=== PATIENT | female | born 1975 | race Caucasian/White ===

== ENCOUNTER 2019-09-08 01:33 | Outpatient (CLI) | payer BC, SELFPAY ==
[2019-09-08 16:16] LABS: SARS-CoV-2 RNA PCR Negative
== END 2019-09-08 01:34 | disposition home or self-care (01) ==
LOC: ANHCOVIDDT 01:34
PROVIDERS: PCP Family Medicine; Visit Provider Internal Medicine Gastroenterology
DX: Z01.82 Encounter for allergy testing (principal); Z11.59 Encounter for screening for other viral diseases
CPT/HCPCS: 87635; C9803; U0003

== ENCOUNTER 2019-09-10 00:58 | Day surgery (SDC) | payer BC, SELFPAY ==
[2019-09-04 10:03] VITALS: BMI 30.5
[2019-09-10 08:12] VITALS: BP 150/90; PULSE 70; RESP 18; TEMP 36.3; O2SAT 100
[2019-09-10] MEDS: LACTATED RINGERS 1,000 ML 150 ML IV CONT (08:25)
--- NOTE | 2019-09-10 08:53 | PM.HPGS ---
History of Present Illness History of Present Illness Consent: Risks, benefits, and alternatives have been discussed and questions answered. Patient agrees to proceed with procedure. Chief complaint: N & V/ Reflux Narrative: Ernestine Sotelo is a 44 year old female Who has been suffering from nausea and vomiting. This began about 3 or 4 years ago. She has also had epigastric burning pain for most of that time. vomiting will occur randomly, usually preceded by nausea. She has had no weight loss. She discontinued all rind-snn-senboti anti-inflammatories. She will often have a cocktail late in evening. Since beginning Nexium 40 mg per day 8 weeks ago her symptoms have improved, but not entirely subsided PMF Family History Family History Father Family history of diabetes mellitus in first degree relative Other Diabetes mellitus Family history of malignant neoplasm of male breast Social History Social History Alcohol intake: current Meds Home Medications and Allergies Home Medications Medication Instructions Recorded Confirmed Type esomeprazole magnesium 40 mg 40 mg PO DAILY #30 cap 07/07/19 09/04/19 Rx capsule,delayed release cetirizine [Zyrtec] 10 mg PO DAILY 09/04/19 09/04/19 History escitalopram oxalate 20 mg PO DAILY 09/04/19 09/04/19 History Allergies Allergy/AdvReac Type Severity Reaction Status Date / Time No Known Allergies Allergy Verified 08/19/19 13:11 Vital Signs Vital Signs - 24 hr 09/10/19 08:12 Temperature 36.3 C L Pulse Rate 70 Respiratory Rate 18 Blood Pressure 150/90 H Pulse Oximetry 100 Exam Const: General: alert Orientation/consciousness: patient oriented x3 Resp: Auscultation: clear to auscultation bilaterally Cardio: Rhythm: regular rhythm GI: GI Palp: Yes Soft to palpation and No Tenderness to palpation present (GI) Neuro: General: patient oriented x3 Assessment and Plan Assessment and plan (1) Nausea and vomiting: Code(s): R11.2 - Nausea with vomiting, unspecified Status: Acute Assessment and Plan: EGD with possible biopsy or dilatation or cautery.
--- NOTE | 2019-09-10 09:02 | WPDANESEPPF ---
Anes - Initial Pre Proc Eval Procedure: Operation Date: 09/10/19 09:00 Proposed Procedures p Esophagogastroduodenoscopy - Tr Klein MD Date/Time: 09/10/19 09:02 Surgeon: Tr Klein MD Pre Op Diagnosis: N & V/ Reflux Patient Data Age: 44 Gender: F Height: 5 ft 3.5 in Weight: 80.3 kg Last Vital Signs Temp 97.3 F L 09/10/19 08:12 Pulse 70 09/10/19 08:12 Resp 18 09/10/19 08:12 BP 150/90 H 09/10/19 08:12 Pulse Ox 100 09/10/19 08:12 Allergies Allergy/AdvReac Type Severity Reaction Status Date / Time No Known Allergies Allergy Verified 08/19/19 13:11 Home Medications Medication Instructions Recorded Confirmed Type esomeprazole magnesium 40 mg 40 mg PO DAILY #30 cap 07/07/19 09/04/19 Rx capsule,delayed release cetirizine [Zyrtec] 10 mg PO DAILY 09/04/19 09/04/19 History escitalopram oxalate 20 mg PO DAILY 09/04/19 09/04/19 History Patient hx anesthesia problems: none Family hx anesthesia problems: none [facility] Past Medical History Medical History (Updated 09/10/19 @ 09:02 by Stevie Velasco MD) Anxiety GERD (gastroesophageal reflux disease) Hypothyroidism (acquired) Family History Family History Father Family history of diabetes mellitus in first degree relative Other Diabetes mellitus Family history of malignant neoplasm of male breast Social History Social History Alcohol intake: current Anes - Eval Final PreProcedure Day of Procedure 09/10/19 09:02 Patient weight: overweight Heart: regular rate and rhythm Lungs: clear to auscultation Airway: Mallampati scale class II Neurological: alert and oriented Last oral intake: >/= 8 hours ASA classification: II Emergent: no Anesthetic plan: proceed Anesthesia type and monitoring: general GIVS and standard monitoring Informed Consent: The patient's anesthetic plan and its attendant risks and benefits were discussed with the patient/family/POA. Questions were solicited and answers provided to the satisfaction of the patient/family/POA.
[2019-09-10 09:17] VITALS: BP 111/80; PULSE 65; RESP 20; O2SAT 98
[2019-09-10 09:27] VITALS: BP 109/79; PULSE 63; RESP 20; O2SAT 98
[2019-09-10 09:37] VITALS: BP 132/87; PULSE 59; RESP 20; O2SAT 99
--- NOTE | 2019-09-10 10:29 | SUR.PHASEII ---
09/10/[address] Klein notified that pt's H. Pylori test positive.
== END 2019-09-10 10:03 | disposition home or self-care (01) ==
PROVIDERS: PCP Family Medicine; Visit Provider Internal Medicine Gastroenterology
PROC: 0DJ08ZZ Inspection of Upper Intestinal Tract, Via Natural or Artificial Opening Endoscopic (ICD-10-PCS; CPT 43235; principal; 2019-09-10 09:00)
DX: K21.0 Gastro-esophageal reflux disease with esophagitis (principal); E03.9 Hypothyroidism, unspecified; F41.9 Anxiety disorder, unspecified
CPT/HCPCS: 43239; 87081; J2704; J7120

== ENCOUNTER → 2020-10-09 11:16 | Outpatient (CLI) | payer BC, SELFPAY ==
--- NOTE | ~2020-10-09 | XR_ITS ---
EXAMINATION: XR lumbar spine 2-3V DATE: 10/09/2020 11:30 INDICATION: Low back pain. TECHNIQUE: 3 views of lumbar spine were obtained. COMPARISON: None. FINDINGS: Bone alignment is normal. Vertebral body heights are normal. There is mildly decreased disc height at L3-L4. There are endplate osteophytes at multiple levels. The facet joints are unremarkabl e. IMPRESSION: 1. Mild lumbar spondylosis. Reviewed, dictated and finalized at location A. IMPRESSION: 1. Mild lumbar spondylosis.
== END ==
LOC: EXPGRAD 11:18
PROVIDERS: PCP Nurse Practitioner Family; Visit Provider Nurse Practitioner Family
DX: M47.816 Spondylosis without myelopathy or radiculopathy, lumbar region (principal)
CPT/HCPCS: 72100

== ENCOUNTER 2022-10-16 16:12 | Emergency (ER) | payer OTHER, SELFPAY ==
[2022-10-16 16:29] VITALS: BP 136/89; PULSE 79; RESP 20; TEMP 36.6; O2SAT 100
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
== END 2022-10-16 16:57 | disposition home or self-care (01) ==
PROVIDERS: Emergency Provider Nurse Practitioner; PCP Family Medicine
DX: S16.1XXA Strain of muscle, fascia and tendon at neck level, initial encounter (principal); S39.012A Strain of muscle, fascia and tendon of lower back, initial encounter; V43.52XA Car driver injured in collision with other type car in traffic accident, initial encounter; K21.9 Gastro-esophageal reflux disease without esophagitis; E03.9 Hypothyroidism, unspecified; F17.210 Nicotine dependence, cigarettes, uncomplicated; F12.90 Cannabis use, unspecified, uncomplicated
CPT/HCPCS: 99213; G0463

== ENCOUNTER 2024-01-21 16:25 | Outpatient (CLI) | payer BC, SELFPAY ==
--- NOTE | ~2024-01-21 | XR_ITS ---
EXAMINATION: XR_[id number]_CR DATE: 01/21/2024 16:46 INDICATION: Left neck pain. TECHNIQUE: 3 views of cervical spine were obtained. COMPARISON: None. FINDINGS: Alignment is normal. Vertebral body heights are normal. There is mildly decreased disc heig ht at C5-C6. There is multilevel mild facet joint osteoarthritis. No central canal stenosis or prever tebral soft tissue swelling. IMPRESSION: 1. Mild cervical spondylosis. Reviewed, dictated and finalized at location A. R [employer]
== END 2024-01-21 16:26 | disposition home or self-care (01) ==
LOC: ANHIMG 16:27
PROVIDERS: PCP Family Medicine
DX: M47.892 Other spondylosis, cervical region (principal); Z87.828 Personal history of other (healed) physical injury and trauma
CPT/HCPCS: 72040

== ENCOUNTER 2025-01-12 07:35 | Outpatient (CLI) | payer BC, SELFPAY ==
--- NOTE | ~2025-01-12 | US_ITS ---
ULTRASOUND ABDOMEN LIMITED (RIGHT UPPER QUADRANT) Clinical History: R11.2 - Nausea with vomiting, unspecified Comparison: None Technique: Right upper quadrant sonography Findings: Liver: Enlarged. Echogenic. No intrahepatic biliary ductal dilatation. Normal hepatopedal flow main portal vein. Common Duct: Normal caliber. 3 mm. Gallbladder: No stones. No wall thickening. No pericholecystic fluid. 8 mm polyp. Pancreas: Unremarkable. IMPRESSION: 1. No acute findings. 2. Hepatomegaly, with steatosis. 3. 8 mm gallbladder polyp. Recommend surveillance ultrasound in one year and/or surgical consultation. Reviewed, dictated and finalized at location R. [employer] IMPRESSION: 1. No acute findings. 2. Hepatomegaly, with steatosis. 3. 8 mm gallbladder polyp. Recommend surveillance ultrasound in one year and/o r surgical consultation.
== END 2025-01-12 07:36 | disposition home or self-care (01) ==
PROVIDERS: PCP Family Medicine; Visit Provider Nurse Practitioner Family
DX: R11.2 Nausea with vomiting, unspecified (principal); R10.13 Epigastric pain; K76.0 Fatty (change of) liver, not elsewhere classified; K82.4 Cholesterolosis of gallbladder
CPT/HCPCS: 76705